=== PATIENT | female | born 1970 | race Caucasian/White ===

== ENCOUNTER 2017-08-25 17:04 | Emergency (ER) | payer BC ==
[2017-08-25 17:13] VITALS: BP 126/71
[2017-08-25] MEDS ORDERED: Ketorolac 30 MG/ML SDV IVPUSH ONE (17:40)
[2017-08-25] MEDS ORDERED: Sodium Chloride 0.9% 10 ML Syringe FLUSH PRN (17:40)
--- NOTE | 2017-08-25 18:25 | EDM.PDOC ---
ED HPI GENERAL MEDICAL PROBLEM - General Chief Complaint: Chest Pain Stated Complaint: CHEST PAIN Time Seen by Provider: 08/25/17 17:25 Source of Information: Reports: Patient History Limitations: Reports: No Limitations - History of Present Illness INITIAL COMMENTS - FREE TEXT/NARRATIVE: 39-year-old female presents for evaluation and treatment of left-sided chest pain. Reports she's had chest pain for the last week. States it is steady and rates the pain as a 6 or 7 out of 10. Reports that the pain radiates up into her left shoulder. She reports associated symptoms of fatigue. No shortness of breath, diaphoresis, nausea or vomiting. She denies any pain or swelling in her legs. States it hurts to take a deep breath. Reports she has been getting cold sweats and chills at night. Patient is also complaining of a headache. States that she's had a headache for the last 2 weeks. She has been taking Aleve with little to no relief. Patient recently had thyroid surgery on May. She had a benign tumor removed. Patient's primary care provider is Nkechi Marie. Duration: Week(s): (1) Location: Reports: Head, Chest Left Chest Pain Score (Numeric/FACES): 6 - Related Data Allergies Allergy/AdvReac Type Severity Reaction Status Date / Time No Known Allergies Allergy Verified 04/20/16 22:11 Home Meds: Home Meds ALPRAZolam [Xanax] 0.5 mg PO Q6H PRN 04/20/16 [History] DULoxetine [Cymbalta] 60 mg PO DAILY 08/25/17 [History] Gabapentin [Neurontin] 300 mg PO BID 08/25/17 [History] Levothyroxine 0 mg PO DAILY 08/25/17 [History] Pantoprazole Sodium [Protonix] 40 mg PO DAILY 08/25/17 [History] Past Medical History Gastrointestinal History: Reports: Colon Polyp, Diverticulosis, Gastritis, Inflammatory Bowel Disease, PUD Other Gastrointestinal History: Chron's Disease Psychiatric History: Reports: Anxiety, Depression Hematologic History: Reports: Anemia - Past Surgical History HEENT Surgical History: Reports: Other (See Below) GI Surgical History: Reports: Other (See Below) Female Surgical History: Reports: Hysterectomy, Tubal Ligation Social & Family History - Family History Family Medical History: Noncontributory - Tobacco Use Smoking Status *Q: Current Some Day Smoker Years of Tobacco use: 20 Packs/Tins Daily: 0.2 - Caffeine Use Caffeine Use: Reports: Coffee, Energy Drinks - Recreational Drug Use Recreational Drug Use: No - Living Situation & Occupation Living situation: Reports: , with Family Occupation: Employed ED ROS GENERAL - Review of Systems Review Of Systems: See Below Constitutional: Reports: Chills, Fatigue, Night Sweats. Denies: Fever HEENT: Denies: Ear Pain, Throat Pain Respiratory: Denies: Shortness of Breath, Cough Cardiovascular: Reports: Chest Pain. Denies: Syncope GI/Abdominal: Denies: Abdominal Pain, Nausea, Vomiting Neurological: Reports: Headache ED EXAM, GENERAL - Physical Exam Exam: See Below Exam Limited By: No Limitations General Appearance: Alert, WD/WN, No Apparent Distress Eye Exam: Bilateral Eye: Normal Inspection Ears: Normal External Exam, Normal Canal, Hearing Grossly Normal, Normal TMs Nose: Normal Inspection Throat/Mouth: Normal Inspection, Normal Lips, Normal Voice, No Airway Compromise Respiratory/Chest: No Respiratory Distress, Lungs Clear, Normal Breath Sounds Cardiovascular: Normal Peripheral Pulses, Regular Rate, Rhythm, No Murmur, Other (Identifies the area of tenderness to the left anterior chest between ribs 3 and 4, improves with pressure) GI/Abdominal: Normal Bowel Sounds, Soft, Non-Tender Neurological: Alert, Oriented, Normal Cognition Psychiatric: Normal Affect, Normal Mood Skin Exam: Warm, Dry, Normal Color EKG INTERPRETATION EKG Date: 08/25/17 Time: 17:30 Rhythm: NSR Rate (Beats/Min): 63 [place]: Normal P-Wave: Present QRS: Normal ST-T: Normal QT: Normal EKG Interpretation Comments: EKG at 17:33 NSR at 63 bpm. Early "R" wave transition. Questionable lead placement V3-V6 are identical with no "R" wave progression. No ischemia identified. EKG at 17:50 shows NSR at 55 bpm. Early "R" wave transition V3-V4 consider septal hypertropy. QT is mildly prolonged for rate. Reviewed by myself and Jessy Mcintosh. Course - Vital Signs Last Recorded V/S: Last Vital Signs Temp 37.0 C 08/25/17 17:11 Pulse 60 08/25/17 17:11 Resp 20 08/25/17 17:11 BP 126/71 08/25/17 17:11 Pulse Ox 100 08/25/17 17:11 - Orders/Labs/Meds Orders: Active Orders 24 hr Category Date Time Status Cardiac Monitoring [RC] . DIRECTED Care 08/25/17 17:40 Active EKG Documentation Completion [RC] ASDIRECTED Care 08/25/17 17:25 Active Peripheral IV Care [RC] . DIRECTED Care 08/25/17 17:40 Active Peripheral IV Insertion Adult [OM.PC] Routine Oth 08/25/17 17:40 Ordered EKG 12 Lead [EK] Stat Ther 08/25/17 17:25 Ordered Labs: Laboratory Tests 08/25/17 08/25/17 08/25/17 Range/Units 17:56 17:56 17:56 WBC 5.71 (3.98-10.04) K/mm3 RBC 3.98 (3.98-5.22) M/mm3 Hgb 12.2 (11.2-15.7) gm/L Hct 37.2 (34.1-44.9) % MCV 93.5 (79.4-94.8) fl MCH 30.7 (25.6-32.2) pg MCHC 32.8 (32.2-35.5) g/dl RDW Std Deviation 42.7 (36.4-46.3) fL Plt Count 202 (182-369) K/mm3 MPV 11.2 (9.4-12.3) fl Neut % (Auto) 49.5 (34.0-71.1) % Lymph % (Auto) 40.8 (19.3-51.7) % [place] % (Auto) 7.2 (4.7-12.5) % Eos % (Auto) 1.4 (0.7-5.8) Baso % (Auto) 0.9 (0.1-1.2) % Neut # (Auto) 2.83 (1.56-6.13) K/mm3 Lymph # (Auto) 2.33 (1.18-3.74) K/mm3 [place] # (Auto) 0.41 H (0.24-0.36) K/mm3 Eos # (Auto) 0.08 (0.04-0.36) K/mm3 Baso # (Auto) 0.05 (0.01-0.08) K/mm3 D-Dimer, Quantitative < 0.19 L (0.19-0.50) mg/L Sodium 138 (136-145) mEq/L Potassium 3.5 (3.5-5.1) mEq/L Chloride 103 (98-107) mEq/L Carbon Dioxide 28 (21-32) mEq/L Anion Gap 10.5 (5-15) BUN 10 (7-18) mg/dL Creatinine 0.6 (0.55-1.02) mg/dL Est Cr Clr Drug Dosing 102.63 mL/min Estimated GFR (MDRD) > 60 (>60) mL/min BUN/Creatinine Ratio 16.7 (14-18) Glucose 92 (74-106) mg/dL Calcium 8.7 (8.5-10.1) mg/dL Total Bilirubin 0.3 (0.2-1.0) mg/dL AST 20 (15-37) U/L ALT 24 (14-59) U/L Alkaline Phosphatase 64 (46-116) U/L Troponin I < 0.017 (0.00-0.056) ng/mL C-Reactive Protein < 0.2 (<1.0) mg/dL Total Protein 6.7 (6.4-8.2) g/dl Albumin 3.7 (3.4-5.0) g/dl Globulin 3.0 gm/dL Albumin/Globulin Ratio 1.2 (1-2) TSH 3rd Generation (0.358-3.74) uIU/mL 08/25/17 Range/Units 17:56 WBC (3.98-10.04) K/mm3 RBC (3.98-5.22) M/mm3 Hgb (11.2-15.7) gm/L Hct (34.1-44.9) % MCV (79.4-94.8) fl MCH (25.6-32.2) pg MCHC (32.2-35.5) g/dl RDW Std Deviation (36.4-46.3) fL Plt Count (182-369) K/mm3 MPV (9.4-12.3) fl Neut % (Auto) (34.0-71.1) % Lymph % (Auto) (19.3-51.7) % [place] % (Auto) (4.7-12.5) % Eos % (Auto) (0.7-5.8) Baso % (Auto) (0.1-1.2) % Neut # (Auto) (1.56-6.13) K/mm3 Lymph # (Auto) (1.18-3.74) K/mm3 [place] # (Auto) (0.24-0.36) K/mm3 Eos # (Auto) (0.04-0.36) K/mm3 Baso # (Auto) (0.01-0.08) K/mm3 D-Dimer, Quantitative (0.19-0.50) mg/L Sodium (136-145) mEq/L Potassium (3.5-5.1) mEq/L Chloride (98-107) mEq/L Carbon Dioxide (21-32) mEq/L Anion Gap (5-15) BUN (7-18) mg/dL Creatinine (0.55-1.02) mg/dL Est Cr Clr Drug Dosing mL/min Estimated GFR (MDRD) (>60) mL/min BUN/Creatinine Ratio (14-18) Glucose (74-106) mg/dL Calcium (8.5-10.1) mg/dL Total Bilirubin (0.2-1.0) mg/dL AST (15-37) U/L ALT (14-59) U/L Alkaline Phosphatase (46-116) U/L Troponin I (0.00-0.056) ng/mL C-Reactive Protein (<1.0) mg/dL Total Protein (6.4-8.2) g/dl Albumin (3.4-5.0) g/dl Globulin gm/dL Albumin/Globulin Ratio (1-2) TSH 3rd Generation 2.308 (0.358-3.74) uIU/mL Meds: Medications Discontinued Medications Generic Name Dose Route Start Last Admin Trade Name Freq PRN Reason Stop Dose Admin Acetaminophen 975 mg 08/25/17 18:53 08/25/17 19:08 Tylenol PO 08/25/17 18:54 975 mg NOW ONE Administration Ketorolac Tromethamine 30 mg 08/25/17 17:40 08/25/17 18:09 Toradol IVPUSH 08/25/17 17:41 30 mg ONETIME ONE Administration Sodium Chloride 10 ml 08/25/17 17:40 08/25/17 18:15 Saline Flush FLUSH 10 ml ASDIRECTED PRN Administration Keep Vein Open - Radiology Interpretation Free Text/Narrative:: Chest x-ray shows no acute intrathoracic process. - Re-Assessments/Exams Free Text/Narrative Re-Assessment/Exam: 08/25/17 20:15 I reviewed the EKG, labs and chest x-ray with the patient. She primarily was complaining of headache therefore Toradol was ordered. She states that this did not help accommodation Tylenol and Toradol did seem to improve her headache. Offered additional pain medication but she declined. Appears to be more chest wall in origin. We will discharge her home at this time. Discharge instructions as documented. Departure - Departure Time of Disposition: 20:21 Disposition: Home, Self-Care 01 Condition: Fair Clinical Impression: Headache, Chest wall pain Instructions: Chest Wall Pain, [id number], Tension Headache, Adult Referrals: Emily Marie, [employer] [Primary Care Provider] - Forms: ED Department Discharge Additional Instructions: [id number] Tylenol or Motrin as needed for pain and discomfort. Ice or heat as needed for additional discomfort. Expect symptoms last no more one more week. If symptoms persist beyond one week follow-up with your primary care provider Please return to ER if your symptoms change or worsen. - My Orders Last 24 Hours: My Active Orders 08/25/17 17:25 EKG Documentation Completion [RC] ASDIRECTED EKG 12 Lead [EK] Stat 08/25/17 17:40 Cardiac Monitoring [RC] . DIRECTED Peripheral IV Care [RC] . DIRECTED Peripheral IV Insertion Adult [OM.PC] Routine - Assessment/Plan Last 24 Hours: My Active Orders 08/25/17 17:25 EKG Documentation Completion [RC] ASDIRECTED EKG 12 Lead [EK] Stat 08/25/17 17:40 Cardiac Monitoring [RC] . DIRECTED Peripheral IV Care [RC] . DIRECTED Peripheral IV Insertion Adult [OM.PC] Routine
[2017-08-25] MEDS ORDERED: Acetaminophen 325 MG Tab PO ONE (18:53)
--- NOTE | 2017-08-26 09:24 | CR ---
Chest: Two views of the chest were obtained. Comparison: No prior chest x-ray. Heart size and mediastinum are normal. Small nodule is noted within the right mid to lower lung. Lungs otherwise are clear. Bony structures appear within normal limits for the patient's age. Impression: 1. Small right lung nodule either due to vessel on end or granuloma. 2. Nothing acute is appreciated on two-view chest x-ray. Diagnostic code #2
== END 2017-08-25 20:27 | disposition home or self-care (01) ==
LOC: JD.ED 17:04
DX: R07.89 Other chest pain (principal); R51 Headache; F17.210 Nicotine dependence, cigarettes, uncomplicated; Z79.899 Other long term (current) drug therapy
CPT/HCPCS: 36415; 71046; 80053; 84443; 84484; 85025; 85379; 86140; 93005; 99284; A9270; J1885; J7050; 96374

== ENCOUNTER 2018-06-26 03:53 | Inpatient (IN) | payer BC ==
[2018-06-26] MEDS ORDERED: LORazepam 2 MG/ML SDV IVPUSH ONE ×2 (03:56→13:45)
[2018-06-26] MEDS ORDERED: Dextrose 5%-0.9% NaCl 1,000 ML IV SCH (04:00)
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
[2018-06-26] MEDS ORDERED: Albuterol/Ipratropium 3.0-0.5 MG/3 ML Neb Soln NEB PRN (07:53)
[2018-06-26] MEDS ORDERED: hydrALAZINE 20 MG/ML SDV IVPUSH PRN (07:56)
[2018-06-26] MEDS ORDERED: Metoprolol Tartrate 5 MG/5 ML SDV IVPUSH PRN (07:56)
[2018-06-26] MEDS ORDERED: LORazepam 2 MG/ML SDV IVPUSH PRN (07:56)
[2018-06-26] MEDS ORDERED: Scopolamine 1.5 MG Transdermal Patch TRDERM PRN (08:41)
[2018-06-26] MEDS: Nicotine 21 MG/24 Hr Patch TRDERM SCH (10:51)
[2018-06-26] MEDS ORDERED: Potassium Chloride 10 MEQ/5 ML SDV IV SCH (11:00)
[2018-06-26] MEDS: NS + KCl 20mEq/L 1,000 ML IV SCH ×2 (11:06→17:50)
[2018-06-26] MEDS: Potassium Chloride 10 MEQ in Premix Bag 1 BAG IV SCH ×4 (11:07→14:29)
[2018-06-26] MEDS: LORazepam 2 MG/ML SDV IVPUSH PRN ×7 (11:08→22:10)
--- NOTE | 2018-06-26 11:10 | CR ---
Chest: Portable view of the chest was obtained. Comparison: Prior chest x-ray of 08/25/17. Heart size and mediastinum are normal. Small nodule noted within the right midlung which appears stable from previous exam. Lungs are clear with no acute parenchymal change. Bony structures are grossly intact. Impression: 1. Nothing acute is seen on portable chest x-ray. Diagnostic code #2
[2018-06-26] MEDS ORDERED: Thiamine 200 MG/2 ML MDV IV ONE (12:31)
[2018-06-27] MEDS: NS + KCl 20mEq/L 1,000 ML IV SCH ×4 (00:08→20:46)
[2018-06-27] MEDS: LORazepam 2 MG/ML SDV IVPUSH PRN ×9 (01:08→19:27)
[2018-06-27] MEDS ORDERED: Magnesium Sulfate/Water 4 GM in Premix Bag 1 BAG IV ONE ×2 (06:28→08:00)
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
[2018-06-27] MEDS ORDERED: Magnesium Sulfate/Water 50 ML ONE (08:15)
[2018-06-27] MEDS: Nicotine 21 MG/24 Hr Patch TRDERM SCH (08:20)
[2018-06-27] MEDS: Multivitamins,Therapeutic Tab PO SCH (08:21)
[2018-06-27] MEDS: Thiamine 100 MG Tab PO SCH (08:21)
[2018-06-27] MEDS: Folic Acid 1 MG Tab PO SCH (08:21)
[2018-06-27] MEDS: chlordiazePOXIDE 25 MG Cap PO SCH ×3 (10:19→22:12)
--- NOTE | 2018-06-27 11:27 | CR ---
Left ankle: Four views of the left ankle were obtained. Comparison: No previous study. Soft tissue swelling is identified. Ankle mortise is symmetric. No fracture, dislocation or other bony abnormality is seen. Impression: 1. Soft tissue swelling appears to be present. 2. No bony abnormality is identified. Diagnostic code #2
[2018-06-27] MEDS ORDERED: LORAZEPAM IV SCH (15:15)
[2018-06-27] MEDS ORDERED: SODIUM CHLORIDE 0.9% IV SCH (15:15)
[2018-06-27] MEDS ORDERED: LORazepam 2 MG/ML SDV IVPUSH ONE (15:24)
[2018-06-28] MEDS: NS + KCl 20mEq/L 1,000 ML IV SCH ×3 (03:36→17:53)
[2018-06-28] MEDS: LORazepam 2 MG/ML SDV IVPUSH PRN ×8 (05:30→20:25)
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
[2018-06-28] MEDS: Thiamine 100 MG Tab PO SCH (08:29)
[2018-06-28] MEDS: Nicotine 21 MG/24 Hr Patch TRDERM SCH (08:29)
[2018-06-28] MEDS: Folic Acid 1 MG Tab PO SCH (08:29)
[2018-06-28] MEDS: chlordiazePOXIDE 25 MG Cap PO SCH ×4 (08:29→20:08)
[2018-06-28] MEDS: Multivitamins,Therapeutic Tab PO SCH (10:56)
[2018-06-28] MEDS: Acetaminophen 325 MG Tab PO PRN (14:17)
[2018-06-28] MEDS: Topiramate 25 MG Tab PO SCH ×2 (19:57→20:09)
[2018-06-28] MEDS: QUEtiapine 25 MG Tab PO SCH ×2 (19:57→20:08)
[2018-06-29] MEDS: LORazepam 2 MG/ML SDV IVPUSH PRN ×4 (00:32→23:21)
[2018-06-29] MEDS: NS + KCl 20mEq/L 1,000 ML IV SCH ×2 (00:35→07:18)
[2018-06-29] MEDS: LINACLOTIDE 72 MCG PO SCH (06:16)
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
[2018-06-29] MEDS ORDERED: Magnesium Sulfate/Water 2 GM in Premix Bag 1 BAG IV ONE (08:30)
[2018-06-29] MEDS: Multivitamins,Therapeutic Tab PO SCH (08:50)
[2018-06-29] MEDS: chlordiazePOXIDE 25 MG Cap PO SCH ×3 (08:50→20:02)
[2018-06-29] MEDS: Folic Acid 1 MG Tab PO SCH (08:50)
[2018-06-29] MEDS: Thiamine 100 MG Tab PO SCH (08:50)
[2018-06-29] MEDS: Nicotine 21 MG/24 Hr Patch TRDERM SCH (08:51)
--- NOTE | 2018-06-29 14:58 | CT ---
Head CT Technique: Multiple axial sections through the brain were obtained. Contrast was not utilized. Comparison: No prior intracranial imaging. Findings: Ventricles along with basal cisterns and sulci over the convexities are within normal limits for the patient's age. Minimal basal ganglia calcification is seen. Small symmetric low density findings are seen within the basal ganglia most likely due to prominent perivascular spaces. No other abnormal parenchymal densities are seen. No evidence of intracranial hemorrhage. No midline shift or mass effect is seen. Bone window settings were reviewed which show the visualized sinuses to appear clear. No acute calvarial abnormality is seen. Impression: 1. Incidental findings. Nothing acute is appreciated on noncontrast head CT exam. Diagnostic code #2
--- NOTE | 2018-06-29 15:15 | CR ---
Chest: Two views of the chest were obtained. Comparison: Prior chest x-ray of 06/26/18. Heart size and mediastinum are normal. Lungs show no acute parenchymal change. Bony structures are within normal limits for the patient's age. Impression: 1. Nothing acute is seen on two-view chest x-ray. Diagnostic code #1
[2018-06-29] MEDS: LORazepam 80 MG in Sodium Chloride 0.9% 40 ML IV SCH (17:56)
[2018-06-29] MEDS: Topiramate 25 MG Tab PO SCH (20:03)
[2018-06-29] MEDS: QUEtiapine 25 MG Tab PO SCH (20:03)
[2018-06-30] MEDS: LORazepam 2 MG/ML SDV IVPUSH PRN ×2 (01:50→16:48)
[2018-06-30] MEDS: LINACLOTIDE 72 MCG PO SCH (05:18)
[2018-06-30] MEDS: LORazepam 80 MG in Sodium Chloride 0.9% 40 ML IV SCH (06:27)
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
[2018-06-30] MEDS: chlordiazePOXIDE 25 MG Cap PO SCH ×4 (08:43→20:11)
[2018-06-30] MEDS: Ondansetron 4 MG/2 ML SDV IV PRN (08:43)
[2018-06-30] MEDS: Folic Acid 1 MG Tab PO SCH (08:44)
[2018-06-30] MEDS: Multivitamins,Therapeutic Tab PO SCH (08:44)
[2018-06-30] MEDS: Nicotine 21 MG/24 Hr Patch TRDERM SCH (08:44)
[2018-06-30] MEDS: Thiamine 100 MG Tab PO SCH (08:45)
[2018-06-30] MEDS ORDERED: QUEtiapine 25 MG Tab PO ONE (17:23)
[2018-06-30] MEDS: QUEtiapine 25 MG Tab PO SCH (20:09)
[2018-06-30] MEDS: Topiramate 25 MG Tab PO SCH (20:09)
[2018-07-01] MEDS ORDERED: LORazepam 1 MG Tab PO ONE ×2 (03:47→04:36)
[2018-07-01] MEDS: Acetaminophen 325 MG Tab PO PRN ×2 (03:55→19:25)
[2018-07-01] MEDS: guaiFENesin/Dextromethorphan 100-10 MG/5 ML Soln 5 ML Cup PO PRN ×2 (03:55→19:25)
[2018-07-01] MEDS: LINACLOTIDE 72 MCG PO SCH (05:04)
[2018-07-01] MEDS: chlordiazePOXIDE 25 MG Cap PO SCH ×3 (09:19→20:08)
[2018-07-01] MEDS: Folic Acid 1 MG Tab PO SCH (09:19)
[2018-07-01] MEDS: Nicotine 21 MG/24 Hr Patch TRDERM SCH (09:19)
[2018-07-01] MEDS: Multivitamins,Therapeutic Tab PO SCH (09:20)
[2018-07-01] MEDS: Thiamine 100 MG Tab PO SCH (09:20)
[2018-07-01] MEDS ORDERED: Magnesium Sulfate/Water 2 GM in Premix Bag 1 BAG IV ONE (10:02)
[2018-07-01] MEDS: Ondansetron 4 MG/2 ML SDV IV PRN (11:42)
[2018-07-01] MEDS: Magnesium Oxide 400 MG Tab PO SCH (11:44)
[2018-07-01] MEDS: QUEtiapine 25 MG Tab PO SCH ×2 (15:19→20:08)
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
[2018-07-01] MEDS: LORazepam 2 MG/ML SDV IVPUSH PRN (18:02)
[2018-07-01] MEDS: Dextrose 5%-0.9% NaCl 1,000 ML IV SCH (19:15)
[2018-07-01] MEDS: Topiramate 25 MG Tab PO SCH (20:08)
[2018-07-02] MEDS: guaiFENesin/Dextromethorphan 100-10 MG/5 ML Soln 5 ML Cup PO PRN ×2 (00:38→21:07)
[2018-07-02] MEDS: Acetaminophen 325 MG Tab PO PRN (00:38)
[2018-07-02] MEDS: Dextrose 5%-0.9% NaCl 1,000 ML IV SCH ×2 (04:06→14:12)
[2018-07-02] MEDS: LINACLOTIDE 72 MCG PO SCH (05:06)
[2018-07-02] MEDS: Thiamine 100 MG Tab PO SCH (09:16)
[2018-07-02] MEDS: Magnesium Oxide 400 MG Tab PO SCH (09:16)
[2018-07-02] MEDS: chlordiazePOXIDE 25 MG Cap PO SCH ×2 (09:16→14:53)
[2018-07-02] MEDS: Folic Acid 1 MG Tab PO SCH (09:16)
[2018-07-02] MEDS: Multivitamins,Therapeutic Tab PO SCH (09:16)
[2018-07-02] MEDS: Nicotine 21 MG/24 Hr Patch TRDERM SCH (09:17)
[2018-07-02] MEDS: QUEtiapine 25 MG Tab PO SCH ×2 (15:02→21:07)
[2018-07-02] MEDS ORDERED: Magnesium Sulfate/Water 2 GM in Premix Bag 1 BAG IV ONE (16:11)
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
[2018-07-02] MEDS: Topiramate 25 MG Tab PO SCH (21:07)
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
[2018-07-03] MEDS: Dextrose 5%-0.9% NaCl 1,000 ML IV SCH ×3 (01:09→22:08)
[2018-07-03] MEDS: Acetaminophen 325 MG Tab PO PRN (03:38)
[2018-07-03] MEDS: guaiFENesin/Dextromethorphan 100-10 MG/5 ML Soln 5 ML Cup PO PRN ×2 (03:38→09:42)
[2018-07-03] MEDS: LINACLOTIDE 72 MCG PO SCH (07:14)
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
[2018-07-03] MEDS: LORazepam 2 MG/ML SDV IVPUSH PRN ×7 (08:20→23:00)
[2018-07-03] MEDS: Nicotine 21 MG/24 Hr Patch TRDERM SCH (08:24)
[2018-07-03] MEDS ORDERED: chlordiazePOXIDE 25 MG Cap PO SCH (09:00)
[2018-07-03] MEDS: Multivitamins,Therapeutic Tab PO SCH (09:37)
[2018-07-03] MEDS: Thiamine 100 MG Tab PO SCH (09:37)
[2018-07-03] MEDS: Folic Acid 1 MG Tab PO SCH (09:37)
[2018-07-03] MEDS: Magnesium Oxide 400 MG Tab PO SCH (09:37)
[2018-07-03] MEDS ORDERED: Benzonatate 100 MG Cap PO PRN (13:57)
[2018-07-03] MEDS ORDERED: chlordiazePOXIDE 25 MG Cap PO ONE (14:01)
[2018-07-03] MEDS: Bisacodyl 5 MG Tab PO SCH (14:54)
[2018-07-03] MEDS: Dronabinol 2.5 MG Cap PO SCH (16:00)
[2018-07-03] MEDS: QUEtiapine 25 MG Tab PO SCH ×2 (16:00→20:27)
[2018-07-03] MEDS: Haloperidol Lactate 5 MG/ML SDV IVPUSH PRN ×2 (17:31→23:54)
[2018-07-03] MEDS: Potassium Chloride 20 MEQ Tab.ER PO SCH ×2 (19:35→20:26)
[2018-07-03] MEDS: chlordiazePOXIDE 25 MG Cap PO SCH (20:26)
[2018-07-03] MEDS ORDERED: Topiramate 25 MG Tab PO SCH (21:00)
[2018-07-04] MEDS: LORazepam 2 MG/ML SDV IVPUSH PRN ×5 (01:00→10:37)
[2018-07-04] MEDS: Acetaminophen 325 MG Tab PO PRN (01:16)
[2018-07-04] MEDS: guaiFENesin/Dextromethorphan 100-10 MG/5 ML Soln 5 ML Cup PO PRN (01:17)
[2018-07-04] MEDS: Dronabinol 2.5 MG Cap PO SCH ×2 (05:05→17:01)
[2018-07-04] MEDS: LINACLOTIDE 72 MCG PO SCH (05:07)
[2018-07-04] MEDS: Dextrose 5%-0.9% NaCl 1,000 ML IV SCH (05:09)
[2018-07-04] MEDS: Haloperidol Lactate 5 MG/ML SDV IVPUSH PRN (07:00)
[2018-07-04] MEDS: Bisacodyl 5 MG Tab PO SCH (08:12)
[2018-07-04] MEDS: Potassium Chloride 20 MEQ Tab.ER PO SCH (08:13)
[2018-07-04] MEDS: chlordiazePOXIDE 25 MG Cap PO SCH (08:13)
[2018-07-04] MEDS: Magnesium Oxide 400 MG Tab PO SCH (08:13)
[2018-07-04] MEDS: Multivitamins,Therapeutic Tab PO SCH (08:13)
[2018-07-04] MEDS: Nicotine 21 MG/24 Hr Patch TRDERM SCH (08:14)
[2018-07-04] MEDS: Folic Acid 1 MG Tab PO SCH (08:14)
[2018-07-04] MEDS: Thiamine 100 MG Tab PO SCH (08:14)
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
[2018-07-04 15:39] VITALS: BP 111/63
== END 2018-07-04 16:51 | DRG 812 ==
LOC: JD.ED 03:53 → JD.ICU 06:13
PROVIDERS: ADMIT Internal Medicine; ATTEND Internal Medicine
DX: T43.292A Poisoning by other antidepressants, intentional self-harm, initial encounter (principal); F10.231 Alcohol dependence with withdrawal delirium; K85.20 Alcohol induced acute pancreatitis without necrosis or infection; K50.90 Crohn's disease, unspecified, without complications; E83.42 Hypomagnesemia; T43.212A Poisoning by selective serotonin and norepinephrine reuptake inhibitors, intentional self-harm, initial encounter; T43.222A Poisoning by selective serotonin reuptake inhibitors, intentional self-harm, initial encounter; T36.1X2A Poisoning by cephalosporins and other beta-lactam antibiotics, intentional self-harm, initial encounter; R41.82 Altered mental status, unspecified; F10.229 Alcohol dependence with intoxication, unspecified; K29.70 Gastritis, unspecified, without bleeding; K27.9 Peptic ulcer, site unspecified, unspecified as acute or chronic, without hemorrhage or perforation; F41.9 Anxiety disorder, unspecified; F32.9 Major depressive disorder, single episode, unspecified; D64.9 Anemia, unspecified; F17.210 Nicotine dependence, cigarettes, uncomplicated; E87.6 Hypokalemia; E03.9 Hypothyroidism, unspecified; M25.572 Pain in left ankle and joints of left foot; V89.2XXS Person injured in unspecified motor-vehicle accident, traffic, sequela; Z86.010 Personal history of colon polyps; Z79.899 Other long term (current) drug therapy; Z90.710 Acquired absence of both cervix and uterus
CPT/HCPCS: 36415; 51702; 70450; 70450-26; 71045; 71045-26; 71046; 71046-26; 73610-26-LT; 73610-LT; 80048; 80053; 80306; 81001; 82140; 83690; 83735; 84439; 84443; 84703; 85007; 85025; 85027; 85610; 93005; 93010; 96361; 96374; 97162-GP; 97166-GO; 99285; 99285-25; A9270-GY; G0480; J1630; J2060; J2405; J3411; J3475; J3480; J3490; J7042; Q0167